=== PATIENT | female | born 1995 | race Hispanic/Latino ===

== ENCOUNTER 2024-07-19 21:58 | Emergency (ER) | payer SELFPAY ==
[~2024-07-19] VITALS: Ht 162.6 cm; Wt 83.9 kg
--- NOTE | 2024-07-19 23:46 | ERN ---
ED Note History of Present Illness Stated Complaint: RT KNEE PAIN Chief Complaint: Knee Injury/Swelling Time Seen by MD: 22:06 Dictation: 29-year-old female presents to the emergency department due to reported having pain to the right knee after having jumped off a box what she was doing some strength training exercises. At that point, she reported have pain as a 7/10. Patient says that the pain is primarily with movement. She states that she felt a buckling type of sensation. At this time, she denies having sustained any other type of injury. Upon initial evaluation, the patient presents with a normal neurovascular examination. Allergies: Coded Allergies: No Known Allergies (Unverified Allergy, Unknown, 07/19/24) Emergency Care SEIS[employer]GR[employer] COMPUTER: None Past Medical History Past Medical History: No Pertinent History Surgical History: None LMP: July 05, 2024 RN Note Reviewed/Agreed w/PFSH: Yes Review of System Dictation MS/Extremity: Right knee pain Initial Vital Sign VS Vital Signs Date Time Temp Pulse Resp B/P (MAP) Pulse Ox O2 Delivery O2 Flow Rate FiO2 07/19/24 21:59 98.2 78 18 125/74 100 Room Air Physical Exam Dictation General: awake, alert, NAD Head/Face: Normocephalic, atraumatic Eyes: PERRL, EOMI ENT: Oral mucosa moist Neck: Trachea midline, supple Cardiovascular: RRR, no edema Respiratory: Symmetrical, non-labored Abdomen: Soft, non-tender, non-distended, no guarding. Skin: Warm, dry, good turgor, no rash MS/Extremity: Painful range of motion and tenderness to the right knee Neuro: COAx4, GCS 15, steady gait, Psych: Normal behavior, mood, and affect normal ED Course ED Course Orders Procedure Category Date Status Time Knee 3vws Rt RAD 07/19/24 Taken 22:29 Vital Signs Date Time Temp Pulse Resp B/P (MAP) Pulse Ox O2 Delivery O2 Flow Rate FiO2 07/19/24 21:59 98.2 78 18 125/74 100 Room Air Medical Decision Making MDM MDM: Differential diagnosis: Right knee sprain, right patellar fracture, right knee strain. Rationale: Tests considered and ordered secondary to shared decision making include: Previous outside records reviewed: Old ER visits. Risk of complication and/or morbidity or mortality of patient management: None Medications-Per medication reconciliation Need for hospitalization: Patient does not meet criteria for hospitalization. Need for emergency major/minor surgery: No There are no social concerns with this patient. Prescription drug management Prescriptions will include symptomatic care Patient's prior external medical records from other ER visits were reviewed by me as indicated. Prior testing and results from previous visits were reviewed. Prior tests were taken into account with medical decision making and resource utilization, independent historian/historians were used to obtain complete medical history. I independently interpreted the test that were performed, results were reviewed by me and considered findings on radiology if ordered. Medical management and examination interpretation discussions were had by me with other qualified healthcare professionals as indicated for the patient's care. DX & DISP Disposition: Discharge Departure Impression: Primary Impression: Right knee sprain Condition: Stable Referrals: SELF,REFERRAL (PCP) SHANTANU OSEGUERA Jul 19, 2024 23:46
[2024-07-19 23:55] VITALS: BP 123/77; PULSE 75; RESP 18; TEMP 98.5; O2SAT 99
--- NOTE | 2024-07-19 23:56 | NUR ---
JD BANDAGE APPLIED TO R KNEE, PATIENT TOLERATED WELL
--- NOTE | 2024-07-20 10:51 | HMCIMG ---
Exam Type: KNEE 3VWS RT Clinical Information: INJURY Comparison: None Findings: The bone examination is unremarkable. No fractures or dislocations are seen. No radiopaque foreign bodies are noted. Soft tissues are preserved. IMPRESSION: Normal examination.
== END 2024-07-19 23:56 | disposition home or self-care (01) ==
LOC: EDH 21:58
DX: S83.91XA Sprain of unspecified site of right knee, initial encounter (principal); W18.39XA Other fall on same level, initial encounter; Y93.B9 Activity, other involving muscle strengthening exercises; Y92.89 Other specified places as the place of occurrence of the external cause; Y99.8 Other external cause status
CPT/HCPCS: 73562; 99283